=== PATIENT | female | born 1930 | race Caucasian/White ===

== ENCOUNTER 2019-05-15 12:03 | Inpatient (IN) | payer OTHER ==
[~2019-05-15] VITALS: Ht 167.6 cm; Wt 59.2 kg
[2019-05-15 12:19] VITALS: BP 87/49
[2019-05-15 12:21] LABS: HEMATOCRIT 36.2 % (37.0-47.0); HEMOGLOBIN 12.2 gm/dL (12.0-15.0); MCH 33.8 pg (26.0-34.0); MCHC 33.8 g/dL (28.0-37.0); MCV 100.1 fL (80.0-100.0); PLATELET COUNT 275 thou/uL (150-400); RBC 3.62 mil/uL (4.20-5.00); RDW 14.3 % (10.5-14.5); WBC 18.7 thou/uL (4.0-11.0)
[2019-05-15 12:32] LABS: CALCIUM 8.6 mg/dL (8.5-10.1); CREATININE 1.1 mg/dL (0.6-1.0); POTASSIUM 3.2 mmol/L (3.5-5.1)
[2019-05-15 12:36] LABS: ANISOCYTOSIS SLIGHT
[2019-05-15 12:37] LABS: ALBUMIN 3.3 g/dL (3.4-5.0); TOTAL BILIRUBIN 1.3 mg/dL (<0.1-1.0); TOTAL PROTEIN 6.4 g/dL (6.4-8.2)
[2019-05-15] MEDS ORDERED: ACETAMINOPHEN325 MG PO (13:28)
[2019-05-15] MEDS ORDERED: ADULT LOW DOSE81 MG PO (13:29)
[2019-05-15] MEDS ORDERED: DULCOLAX STOOL100 M1 PO (13:30)
[2019-05-15] MEDS ORDERED: FLOMAX0.4 MG PO (13:31)
[2019-05-15] MEDS ORDERED: DULCOLAX STOOL100 MG PO (13:31)
[2019-05-15] MEDS ORDERED: MIRALAX119 GM PO (13:34)
[2019-05-15] MEDS ORDERED: SUPER THERAVIT1 EACH PO (13:34)
[2019-05-15] MEDS ORDERED: TRIAMTERENE/HCT1 CA1 PO (13:35)
--- NOTE | 2019-05-15 20:47 | NUR ---
CHECKED WITH [facility] ON [facility] AND THEY CALLED PREVIOUS SKILLED NURSING [place], NO HISTORY OF CDIFF , MRSA
[2019-05-15 21:05] VITALS: BP 107/58
[2019-05-15 21:15] VITALS: BP 107/58
[2019-05-15 22:30] VITALS: BP 106/68
--- NOTE | 2019-05-16 00:53 | NUR ---
PATIENT ARRIVED VIA BED FROM ED WITH VISCOSITY WORKER. WALKED FROM ED BED TO ROOM BED WITH WALKER. BERRY TO D/D WITH SIAAC URINE. ALERT AND ORIENTED X4. PLEASANT AND COOPERATIVE. RIGHT HEEL WOUND, REDNESS TO BUTTOCK AND LEFT ARM REDNESS/WARMTH WITH SOME EDEMA. RESTING QUIETLY.
--- NOTE | 2019-05-16 04:54 | NUR ---
PATIENT ALERT AND ORIENTED X4. BERRY TO D/D WITH ISAAC URINE. NO BM AT TIME OF NOTE. IVPB INFUSING THROUGH RIGHT HAND SL. MEDICATED WITH TYLENOL FOR GENERALIZED PAIN DUE TO ARTHRITIS. PATIENT STATES THAT SHE IS NOT DIABETIC AND WILL NOT TAKE FINGER STICKS. PATIENT WILL HAVE A MRI OF HER RIGHT FOOT AND DOPPLER OF HER BILATERAL LOWER LEGS TODAY. SLEPT WELL DURING THE NIGHT. PATIENT COULD NOT REMEMBER THE NAME OF THE ASSISTED LIVING FACILITY SHE LIVES IN HOWEVER, [facility] AND SHE WOULD LIKE FOR SOMEONE TO BRING HER PURSE TO HER IN THE HOSPITAL. RESTING QUIETLY.
[2019-05-16 05:22] LABS: ABSOLUTE NEUTROPHILS 13.8 thou/uL (1.4-8.2); BASOPHILS 0.5 % (0.0-2.0); HEMATOCRIT 30.4 % (37.0-47.0); LYMPHOCYTES 8.7 % (24.0-44.0); MCH 33.9 pg (26.0-34.0); MCHC 33.5 g/dL (28.0-37.0); MCV 101.1 fL (80.0-100.0); MONOCYTES 5.2 % (1.0-8.0); POLYS 85.6 % (36.0-66.0); RBC 3.01 mil/uL (4.20-5.00); RDW 14.4 % (10.5-14.5); WBC 16.1 thou/uL (4.0-11.0)
[2019-05-16 05:23] LABS: HEMOGLOBIN 10.2 gm/dL (12.0-15.0); PLATELET COUNT 200 thou/uL (150-400)
[2019-05-16 06:09] LABS: ALBUMIN 2.6 g/dL (3.4-5.0); CALCIUM 7.7 mg/dL (8.5-10.1); CREATININE 0.9 mg/dL (0.6-1.0); MAGNESIUM 1.6 mg/dL (1.8-2.4); PHOSPHORUS 3.7 mg/dL (2.5-4.9); TOTAL BILIRUBIN 1.2 mg/dL (<0.1-1.0); TOTAL PROTEIN 5.4 g/dL (6.4-8.2)
[2019-05-16 06:18] LABS: POTASSIUM 2.7 mmol/L (3.5-5.1)
--- NOTE | 2019-05-16 07:55 | EKG ---
[facility] [place] [address] ELECTROCARDIOGRAM REPORT Name: JESSENIA VAUGHAN Room #: 405-P ADM IN M.R.#: [id number] Admission: 05/15/19 Attend Phys: Renata Renee MD Discharge: Date of : [birth year]/27/[birth year] Report #: [id number] THIS REPORT FOR: cc: Kedar Hay James D. DO Lundgren, Craig H. MD [facility] ~ THIS REPORT FOR: //name// [facility] ED Test Date: 2019-05-15 Test Time: 12:07:41 Pat Name: JESSENIA VAUGHAN Department: Room: 405 Gender: F Qlikview Developer: yudi : 1930 Requested By: Renata Renee Order Number: [id number] MD: Dexter Burr Measurements Intervals Wenden Rate: 102 P: 66 VA: 174 QRS: -11 QRSD: 96 T: 166 QT: 329 QTc: 429 Interpretive Statements Sinus tachycardia Multiple premature complexes, supraven Inferior infarct, old Nonspecific ST and T wave abnormality No previous ECG available for comparison Electronically Signed On 05-16-2019 7:54:50 PAYROLL AND BENEFITS ANALYST by Dexter Burr [email or web address] <ELECTRONICALLY SIGNED> By: Dexter Burr MD, [facility] 05/16/19 0754 [id number] Dexter Burr MD, [facility] /EPI
[2019-05-16 08:20] VITALS: BP 111/64
[2019-05-16 16:33] VITALS: BP 100/64
--- NOTE | 2019-05-16 17:26 | NUR ---
INITIAL ASSESSMENT: Received high risk nursing referral. SW reviewed chart and spoke with nursing and attending physician. Pt was admitted from [facility] due to right heel ulceration. Pt to have MRI today to r/o osteomyelitis. SW met with pt at bedside. Introduced role of SW. Pt is alert/orientated x 4. Pt reports she lives alone in an AL apt at [facility]. Pt states she is currently on service with [facility]. Pt has been to [facility] in the past. SW explained that pt may need post-acute placement or to resume services when discharged. Pt verbalized understanding. Pt's nephew and niece are her contacts and are involved in her care. SW is following to assist as needed with discharge planning.
--- NOTE | 2019-05-16 17:34 | NUR ---
ASSUMED PATIENT CARE AT 0700. PATIENT IS AOX4. PATIENT HAD HER MRI AND LEAD DONE AND WAS OFF THE FLOOR FOR SEVERAL HOURS. PATIENT WAS SEEN BY WOUND CARE AND A DEBRIDMENT WAS DONE TO THE WOUND ON THE LEFT HEEL. PATIENT HAS BEEN GETTING UP AND MOVING AROUND AND HAS SPENT TIME IN THE CHAIR TODAY. PATIENT HAD A BOWEL MOVEMENT TODAY AND WHILE CLEANING UP FROM THAT THE WOUND CARE TEAM WAS ABLE TO LOOK AT HER BOTTOM, CONTINUE BARRIER CREAM. FOLLEY IS IN PLACE AND PATENT. PATIENT HAS EDEMA IN THE LEFT ARM THAT IS SORE, WARM TO TOUCH, AND RED. DOCTOR IS AWARE AND WE PULLED THE INFILTRATED IV OUT. PATIENT IS UP WITH 1 AND DOES PRETTY WELL WITH HER GAIT. FALL PRECAUTIONS ARE IN PLACE AND CALL LIGHT WITHIN REACH.
--- NOTE | 2019-05-16 20:03 | NUR ---
I AGREE WITH NURSING ASSESSMENT AND NURSING NOTE DONE BY RAGINI/NICOLE.
[2019-05-16 20:05] VITALS: BP 98/62
[2019-05-17 02:15] LABS: HEMATOCRIT 30.2 % (37.0-47.0); HEMOGLOBIN 9.8 gm/dL (12.0-15.0); MCH 33.2 pg (26.0-34.0); MCHC 32.6 g/dL (28.0-37.0); MCV 101.6 fL (80.0-100.0); RBC 2.97 mil/uL (4.20-5.00); RDW 14.3 % (10.5-14.5)
[2019-05-17 02:16] LABS: CALCIUM 8.1 mg/dL (8.5-10.1); CREATININE 0.8 mg/dL (0.6-1.0)
[2019-05-17 02:18] LABS: POTASSIUM 4.4 mmol/L (3.5-5.1)
[2019-05-17 04:23] VITALS: BP 127/80
--- NOTE | 2019-05-17 05:40 | NUR ---
Assumed pt care at 1900. Pt is A/OX4 with forgetfulness noted but able to make needs known. Pt had a debridement to right heel yesterday, drsg on foot C/D/I/ Bordered foam applied to coccyx,area pink not open. VSS. Pt's left arm improving;less pink/warm but tender to touch;elevated on a pillow. Pt declined need for pain meds for it. Lee patent draining dark yellow urine,PO intake encouraged. IV abts infusing via Right wrist w/o problems. Fall precautions in place, calls approp for help.
[2019-05-17 09:35] LABS: % SATURATION 6 % (20-39); IRON 12 ug/dL (50-170); TIBC 199 ug/dL (250-450)
[2019-05-17 09:40] VITALS: BP 130/79
[2019-05-17 10:07] LABS: FOLIC ACID 13.1 ng/mL (8.6-58.9)
--- NOTE | 2019-05-17 13:52 | NUR ---
SW reviewed chart and spoke with nursing and attending physician. Ortho and IR consult ordered today to evaluate pt. Pt remains on IV abx. [facility] is following to assist as needed with discharge planning.
--- NOTE | 2019-05-17 17:34 | NUR ---
PT IS AOX2-3, [place] AND FORGETFUL. PT RECEIVED DRESSING CHANGE TO RIGHT HEEL BY WOUND CARE TEAM. DRESSING IS C/D/I. PT HAS FOAM DRESSING ON COCCYX. PT HAS IV RUE AND RFA, RECEIVES SCHEDULED ANTIBIOTIC THERAPY ORDERED. PT IS TOLERATING DIET, BERRY IS PATENT. FALL PRECAUTION IN PLACE, CALL LIGHT/PERSONAL ITEMS IN REACH. WILL CONTINUE TO MONITOR.
[2019-05-17 20:29] VITALS: BP 126/84
[2019-05-18] VITALS (9 sets, daily range): BP systolic 119–149; BP diastolic 56–81
--- NOTE | 2019-05-18 04:19 | NUR ---
Assumed pt care at 1900. Pt's A/OX4, VSS.Up with moderate assist to BSC,WBAT to RLE. Had a soft BM this shift, lombardi patent draining dark yellow urine. Wound care done to right heel and wound cx obtained as ordered;picture taken pt tolarated procedure well. Fall precautions in place,pt calls approp. Will continue to monitor pt. Pt has 2 PIV's on RAC/wrist patent and SL. Left arm red,swollen and warm to touch elevated on a pillow.
--- NOTE | 2019-05-18 11:31 | HC ---
[facility] [place] [address] CONSULTATION Name: JESSENIA VAUGHAN Room #: 150-5 ADM IN M.R.#: [id number] Admission: 05/15/19 Attend Phys: Renata Renee MD Discharge: Date of : [birth year]/27/[birth year] Report #: [id number] THIS REPORT FOR: cc: Kedar Hay James D. DO Althoff, Jeffrey R. MD ~ CC: Kedar Renee DATE OF SERVICE: 05/16/2019 WOUND CARE CONSULTATION CHIEF COMPLAINT: Right heel ulcer. HISTORY OF PRESENT ILLNESS: This is an 88-year-old female patient with some history of peripheral vascular disease, living in a facility. She was noted to have an odor as well as an ulceration to her right posterior heel, and I have been asked to see her with regard to wound care. The patient cannot provide a whole lot of information about herself in terms of its onset and duration. She does note a little bit of discomfort associated with it. PAST MEDICAL HISTORY: Positive for history of hypertension, urinary retention. She has an indwelling Lee catheter. SOCIAL HISTORY: The patient denies significant alcohol use and no history of tobacco use. FAMILY HISTORY: Positive for history of coronary artery disease in her family. MEDICATIONS: Include acetaminophen, aspirin, Dulcolax, Flomax, MiraLax, hydrochlorothiazide and triamterene. ALLERGIES: PROMETHAZINE. REVIEW OF SYSTEMS: CONSTITUTIONAL: The patient denies fever, chills or weight loss. NEUROLOGICAL: The patient denies focal weakness, numbness or tingling. EYES: The patient denies visual changes, redness, or drainage. ENT: The patient denies earache, nasal drainage, sore throat. CARDIOVASCULAR: The patient denies chest pain, palpitations or diaphoresis. PULMONARY: The patient denies cough or shortness of breath. GASTROINTESTINAL: The patient denies nausea, vomiting, diarrhea or abdominal pain. ORTHOPEDIC: The patient does complain of pain involving her right posterior heel. [facility] [address] [place] [address] CONSULTATION Name: JESSENIA VAUGHAN Room #: 150-5 ADM IN ..#: [id number] Admission: 05/15/19 Attend Phys: Renata Renee MD Discharge: Date of : 12/27/[birth year] Report #: [id number] Other systems in a 14-point review of systems are negative. PHYSICAL EXAMINATION: VITAL SIGNS: At this time include temperature 36.7, pulse 73, respiratory rate 16, blood pressure 100/64. GENERAL: This is a frail-appearing female patient who appears to be in mild distress. HEENT: Head normocephalic. Nose and throat clear. NECK: Supple. LUNGS: Clear. HEART: Regular rhythm. ABDOMEN: Bowel sounds present. EXTREMITIES: Lower extremities demonstrate distal pulses are a little bit difficult to palpate. These appear to be pink, warm and dry. There is a foul smelling circular ulceration on the right posterior heel that measures 2.5 x 1.5 x 0.1 cm with some moist black eschar. This was debrided at the bedside with a #10 bladed scalpel, which she tolerated well. Please see separate dictation for the procedure note. NEUROLOGIC: The patient is alert and oriented and appropriate. LABORATORY DATA: Sodium 136, potassium 2.7, chloride 100, CO2 of 28, BUN 21, creatinine 0.9, glucose 109, calcium 7.7, phosphorus 3.7, total protein 5.4, albumin 2.6. White blood cell count 16.1, hemoglobin 10.2. CLINICAL IMPRESSION: 1. Unstageable pressure ulceration of the right heel, status post debridement. 2. Peripheral vascular disease by clinical exam. 3. Sepsis with hypotension and lactic acidosis. 4. Hypertension. 5. Anemia. RECOMMENDATIONS: At this point in time, I have debrided the heel at the bedside with the patient's permission. The patient tolerated the procedure well. We will recommend a quarter strength Dakin's moist gauze dressing. We will look for an MRI as well as vascular studies and additional decision making will be forthcoming pending review of these studies. We will place her in a PRAFO boot while she is in bed. We will recommend ongoing aggressive nutritional support. I appreciate being asked to see the patient in consultation. <ELECTRONICALLY SIGNED> By: Amos Hugo MD 05/18/19 1131 [id number] Amos Hugo MD /nt
--- NOTE | 2019-05-18 11:31 | P ---
[facility] [place] [address] PROCEDURE REPORT Name: JESSENIA VAUGHAN Room #: 150-5 ADM IN M.R.#: [id number] Admission: 05/15/19 Attend Phys: Renata Renee MD Discharge: Date of : 12/27/[birth year] Report #: [id number] THIS REPORT FOR: cc: Kedar Hay,Amos Draper MD ~ CC: Kedar Renee DATE OF SERVICE: 05/16/2019 PREPROCEDURE DIAGNOSIS: Unstageable pressure ulcer to the right heel. POSTPROCEDURE DIAGNOSIS: Unstageable pressure ulcer to the right heel. PROCEDURE PERFORMED: Surgical excisional debridement of skin, subcutaneous and devitalized tissue to the right posterior heel. DESCRIPTION OF PROCEDURE: After verbal consent from the patient at the bedside, the right heel was prepped and draped in usual sterile fashion. Time-out was taken. Correct patient, correct site, correct procedure were determined. A #10 bladed scalpel was then utilized with tissue forceps to remove eschar, skin and subcutaneous tissue down to a healthier clean bleeding base. No bony exposure was noted. The patient tolerated the procedure well, with the pain a 2 on a scale of 1-10 during the procedure and 0 on a scale of 1-10 postprocedure. Estimated blood loss 0 mL. No hemostasis was required. <ELECTRONICALLY SIGNED> By: Amos Hugo MD 05/18/19 1131 [id number] Amos Hugo MD /margaret
--- NOTE | 2019-05-18 14:43 | NUR ---
SW reviewed chart and spoke with nursing and attending physician. Pt had angiogram earlier today and transferred to CCU following procedure. SW discussed with pt's family who state that they do not want pt to go to [facility], as pt had mentioned earlier. Family would be agreeable with [facility] SNF if needed. Will need therapy evals when pt is able to participate. SW updated CCU SW. Following to assist as needed with discharge planning.
--- NOTE | 2019-05-18 18:17 | NUR ---
ASSUMMED PT CARE AT APPROXIMATELY 1530. PT A&O X4. ASSESSMENT CHARTED. FALL PRECAUTIONS IN PLACE. PT DENIES HAVING CHEST PAIN. PT DENIES HAVING SOB. PT STATED HER L UPPER ARM HAD PAIN. PT RECEIVED ANALGESICS. L UPPER EXTREMITY INFILTRATED. ELEVATED L ARM AND WRAPPED IN WARM COMPRESS. PT L GROIN C/D/I. NO HEMATOMA. BERRY D/C. AWAITING PT TO HAVE POST-CATH REMOVAL VOID. EDUCATED PT AND PT'S FAMILY ABOUT POC. PT AND PT'S FAMILY STATED UNDERSTANDING AND DENIED HAVING FURTHER QUESTIONS. VITAL SIGNS STABLE. PT COMFORTABLE IN BED. PT DENIES HAVING FURTHER CONCERNS.
[2019-05-19 00:55] VITALS: BP 121/69
[2019-05-19 04:45] VITALS: BP 119/61; BP 136/77
--- NOTE | 2019-05-19 05:04 | NUR ---
PT ALERT AND ORIENTED. VSS. LEFT GROIN DRESSING C/D/I. ASSIST OF 1 TO THE BEDSIDE COMMODE. SR RHYTHM ON THE MONITOR. NO CHEST PAIN. NO NAUSEA OR VOMITING REPORTED. WILL CONTINUE WITH POC.
[2019-05-19 06:05] LABS: HEMATOCRIT 32.2 % (37.0-47.0); MCH 34.5 pg (26.0-34.0); MCHC 34.3 g/dL (28.0-37.0); MCV 100.9 fL (80.0-100.0); RBC 3.19 mil/uL (4.20-5.00); WBC 8.5 thou/uL (4.0-11.0)
[2019-05-19 06:26] LABS: CALCIUM 7.8 mg/dL (8.5-10.1); CREATININE 0.6 mg/dL (0.6-1.0); POTASSIUM 3.6 mmol/L (3.5-5.1)
[2019-05-19 08:00] VITALS: BP 136/83
[2019-05-19 11:00] VITALS: BP 127/82
--- NOTE | 2019-05-19 15:22 | NUR ---
Referral called and discussed with [facility] for likely snf stay at dc. 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 PT/OT evals in progress. Dc meeting/event planner to fax referral and therapy evals to [facility]. Dc timeframe is uncertain.
[2019-05-19 16:00] VITALS: BP 155/86
--- NOTE | 2019-05-19 18:26 | NUR ---
ASSUMED PATIENT 0700. ALERT X3, DENIES SOB, DENIES CHEST PAIN, PAIN MANAGED WITH PRN MEDCATION, RIGHT HEEL ULCER DRESSIMG CHANGED PER ORDER.WOUND CARE LOOKED AT WOUND NOT PLANS FOR SURGERY AT THIS TIME. LEFT ARM EDEMA, RED AND BLISTERING DUE TO IV ABX INFILTRATION. PHYSICIAN, MANAGEMENT, HOUSE SUP, WOUND CARE, IV TEAM AWARE. IV TEAM DID A ULTRA SOUND OF ARM. DR GREY ORDERED ASHKAN WRAP OR TUBI CLIENT RELATION SPECIALIST TOLERATED FOR EDEMA. ARM ELEVATED AND COLD COMPRESSES APPLIED WELL. ASSIST WITH MEAL SET UP. UP WITH AX1 TO COMMODE. BM TODAY. CALL LIGHT IN REACH. FALL PRECAUTIONS IN PLACE. CONTINUE TO MONITOR. NO PLANS DC IN AM.
[2019-05-19 19:55] VITALS: BP 139/82
[2019-05-20 04:50] VITALS: BP 152/72
--- NOTE | 2019-05-20 06:30 | NUR ---
ASSESSMENT: PT REMAIN ALERT AND ORIENT TIMES THREE. UP TO BSC WITH ONE ASSIST. RIGHT HEEL ELEVATED ON PILLOWS. TYLENOL GIVEN FOR PAIN. NO TELE. VSS, AFEBRILE. WILL CONTINUE TO MONITOR.
[2019-05-20 07:50] VITALS: BP 158/100
--- NOTE | 2019-05-20 11:56 | NUR ---
ASSUMED CARE AT 0700, SHIFT ASSESMENT DONE, MEDS GIVEN, VSS. REPORTED PAIN, PRN PAIN MED GIVEN. WOUND CARE DONE. ROOM AIR, NOT ON TELE. WILL CONTINUE TO ASSESS AND ASSIST WITH ADLs NEEDED.
--- NOTE | 2019-05-20 16:16 | NUR ---
[facility] SN[facility] updated and they have submitted for snf auth with dc anticipated on Thursday. Sensitivities are pending. No surgery anticiapted. Pt will likely need iv atb, wound care and therapy at the SNF.
--- NOTE | 2019-05-20 17:00 | NUR ---
FAXED REFERRAL TO [facility] SPOKE WITH KILEY IN ADM THEY RECEIVED REFERRAL AND THEY NEED PT'S SOC. SECURITY NUMBER IT IS NOT ON FACE SHEET. SW SPOKE WITH PT AND SHE IS TRYING TO GET HER SS CARD HERE. DP TO FOLLOW.
--- NOTE | 2019-05-20 20:14 | NUR ---
VAT CONSULTED FOR A PICC FOR THIS PT FOR IV ABX FOR HER RT FOOT WOUND. SHE ALSO HAS AN EXTENSIVE INFILTRATION IN HER LT ARM THAT IS WARM, TENDER AND PAINFUL. ASSESSED HER LT AC VESSELS AND THEY ARE ONLY PARTIALLY COMPRESSIBLE. RECOMMENDED A DX ULTRASOUND TO RULE OUT A THROMBUS IN THE AM. A 4FRSLPICC PLACED IN HER RUABAILIC. PLEASE SEE INSERTION FOR DETAILS.
[2019-05-20 20:45] VITALS: BP 132/77
--- NOTE | 2019-05-20 20:48 | NUR ---
Pt transferred from CCU at 1730, report received from Staff nurse Rene. A+Ox4. On room air. On regular diet- tolerated dinner well; no nausea, no vomiting and no abdominal pain. Due medications given as prescribed, able to swallow tablet without difficulty. With SL at R FA. With R heel ulcer- dressing in place, as per previous nurse, dressing has been done today. Able to use the bedside commode with AO1. With redness and swelling noted on L arm, pt said she had a previous IV that infiltrated on that arm, kept elevated and ice pack applied. Falls bundle in place. Pt with orders this evening from Dr Granados, for PICC line insertion- consent obtained from the patient, had to call he relative Bobby re: PICC line insertion- they agreed and said pt can sign document, consent obtained- IV nurse informed; PICC line inserted. 1830 antibiotic not given as pt has ongoing PICC line insertion, palliative care coordinator nurse informed to give antibiotic once IV nurse done. A/w wound team and ortho plans for pt as well as placement and discharge plans. To continue monitoring patient.
--- NOTE | 2019-05-20 20:52 | NUR ---
TIP OF PICC AT THE [facility], [place] FOR USE PER PROTOCOL
--- NOTE | 2019-05-21 05:21 | NUR ---
Pt. rested quietly during the night when checked on during frequent rounds. She did c/o pain to her right heel and po tylenol given (see emar) with some relief noted. Left arm continues to be reddish in color and warm upon touch. Ice bag applied to the arm throughout the shift. up to the bedside comode with assistance of one. Bed alarm is on.
[2019-05-21 09:30] VITALS: BP 136/54
[2019-05-21 18:50] VITALS: BP 127/70
--- NOTE | 2019-05-21 19:24 | NUR ---
88 YO FEMALE TRANSFERED FROM 4W. A&OX4. IV INTACT IN R FA, MAY PICC INTACT INFUSING NS @ 20ML/HR. STAND BY ASSIST X1. PT'S NIECE ZOYA NOTIFIED OF TRANSFER. ORIENTED PT TO ROOM/CALL LIGHT, CHAIR ALARM ON.
--- NOTE | 2019-05-21 19:31 | NUR ---
Received awake on bed. Due medications given as prescribed, able to swallow meds w/o difficulty. On room air. Vital signs stable. Continent of bowel and bladder, able to use a bedside commode with AO1, gait belt and walker. With SL on R FA, with PICC line at R upper arm- pt seen by IV nurse and dressing change. Assisted in ADLs. Pt still have redness and swelling noted on her left arm, compression applied on the arm as ordered; ultrasound done as ordered. Pt visited by relatives today. Pt with sacral wound and R heel wound- unable to change dressing today, previous dressing in place- night club manager nurse informed that dressings were not changed. Rt heel kept elevated. left hand elevated and ice packs applied. Pt transferred to [facility] as per catalyst supervisor's advise, Report given to Staff nurse Edith Otero, transported via wheelchair with her personal belongings with her, informed staff Edith to inform pt's relative re: transfer.
[2019-05-21 19:45] VITALS: BP 126/86
--- NOTE | 2019-05-22 04:19 | NUR ---
ASSUMED CARE OF PATIENT AT SHIFT CHANGE. ASSESSMENT CHARTED. MEDICATIONS GIVEN PER MAY. PATIENT IS A&OX4, VSS, VOICES PAIN. PRN TYLENOL GIVEN. PATIENT GOT UP FROM CHAIR TO BSC AND BED THIS SHIFT, X 1 ASSIST WITH FAIR TOLERANCE. PATIENT IN BED AT AROUND 2100 W R FOOT ELEVATED. L HAND STILL SWOLLEN BUT NO LONGER HOT TO TOUCH. ARM ELEVATED ON PILLOW WHILE SLEEPING THIS SHIFT. PATIENT DENIED PAIN FOR REST OF NIGHT. PATIENT TO HAVE FOOT WOUND CHANGED DAILY; REQUESTED TO HAVE DRESSING CHANGED DURING DAY. SACRAL BANDAGE C/D/I. PATIENT HAD A SMALL BM THIS SHIFT. FALL PRECAUTIONS IN PLACE. CALLS OUT APPROPRIATELY. DENIES NEEDS AT THIS TIME. PER CM AND CARE TEAM, PATIENT TO D/C THIS COMING WEEK TO RETIREMENT; POSSIBLY [facility]. WILL CONTINUR TO MONITOR AND FOLLOW PLAN OF CARE
--- NOTE | 2019-05-22 04:58 | NUR ---
THIS NURSE AGREES WITH ASSESSMENT AND NOTES FROM HOT CAR OPERATOR ON THIS PATIENT.
[2019-05-22 07:34] VITALS: BP 154/89
--- NOTE | 2019-05-22 14:51 | NUR ---
PT A&OOX4. IV INTACT IN R FA, PICC LINE INTACT IN AMY. TRANSFERS WITH ASSIST X1 TO CHAIR AND BSC. L ARM IS RED AND SWOLLEN FROM HAND TO UPPER ARM. TOLERATED R HEAL CHANGE, TYLENOL GIVEN FOR PAIN. SIITING IN CHAIR WITH ARM ELEVATED AND ICE PACK TO ARM.WILL CONT POC.
[2019-05-22 16:25] VITALS: BP 123/72
[2019-05-22 19:31] VITALS: BP 130/73
--- NOTE | 2019-05-23 03:15 | NUR ---
PATIENT ALERT AND ORIENTED X4. UP TO THE BSC WITH ONE ASSIST AND PRESSURE OFF OF HER RIGHT HEEL. DRESSING DRY AND INTACT. LEFT ARM REMAINS RED, HOWEVER, SWELLING IS DOWN CONSIDERABLY AND ARM IS UP ON A PILLOW. NO C/O PAIN AT THIS TIME. PLEASANT AND COOPERATIVE. WILL MONITOR.
[2019-05-23 08:59] VITALS: BP 156/83
--- NOTE | 2019-05-23 14:29 | NUR ---
DISCHARGE PLANNING. ANTICIPATED DISCHARGE TO [facility] ONCE INSURANCE AUTH OBTAINED. TOMMY BOWMANOP ADMISSIONS, WAS ABLE TO OBTAIN PATIENTS SOCIAL SECURITY NUMBER FROM [facility]. INSURANCE AUTH PENDING AT THIS TIME. FOLLOWING.
--- NOTE | 2019-05-23 16:16 | NUR ---
SW reviewed chart and spoke with nursing and attending physician. Pt was transferred to [facility] from and is progressing towards goals for discharge. Awaiting therapy notes from today to sent to [facility] for review. Will need insurance authorization for skilled placement. Pt will need IV abx. SW met with pt at bedside to discuss discharge plan. Pt was unaware of referral to [facility] and plan to discharge to the SNF. SW explained that the level of care being recommended is not available at her currently AL facility. Pt requested SW contact her [id number], Kelle Galdamez, to further discuss. Pt states that she thought she would be going to a facility at [facility] and [place]. SW spoke with Kelle Galdamez, via phone to discuss post-acute placement. Kelle Galdamez is agreeable with pt going to [facility]. Pt has been to [facility] and family does not want her to return there. BESSY explained need for insurance authorization. BESSY updated [place] liaison and incident coordinator. BESSY is following to assist as needed with discharge planning.
--- NOTE | 2019-05-23 18:38 | HC ---
[facility] [place] [address] CONSULTATION Name: JESSENIA VAUGHAN Room #: 404-P ADM IN M.R.#: [id number] Admission: 05/15/19 Attend Phys: Renata Renee MD Discharge: Date of : 12/27/30 Report #: [id number] THIS REPORT FOR: cc: Kedar Hay,Willie Goldberg MD ~ CC: Kedar Renee DATE OF SERVICE: 05/19/2019 INFECTIOUS DISEASE CONSULTATION REASON FOR CONSULTATION: I was asked to evaluate concerning right heel wound infection and early osteomyelitis. HISTORY OF PRESENT ILLNESS: The 88-year-old with peripheral vascular disease, nonhealing wound to her right heel. No specific trauma identified. The patient had fallen previously and had been residing in a longterm most recently. Returns for further evaluation. She was seen by Vascular Medicine and underwent a right lower extremity arterial stent. She tolerated the procedure well. She has a moderate amount of pain in the heel. She is now being addressed by wound care service. She did have a CT scan, which showed evidence of soft tissue wound and cellulitis along with early osteomyelitis of the calcaneus. No definite abscess. She has been seen by Orthopedic Surgery who plans on surgical debridement tomorrow. No fever, chills, or sweats. No history of diabetes. REVIEW OF SYSTEMS: A 14-point review of systems was negative other than what has been described above. PAST MEDICAL HISTORY: Hypertension, urinary retention, and has an indwelling Lee catheter. FAMILY HISTORY: Coronary artery disease. SOCIAL HISTORY: Lives alone, nonsmoker, no significant alcohol intake. 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 ALLERGIES: PROMETHAZINE. MEDICATIONS: Tylenol, aspirin, Flomax, MiraLax, hydrochlorothiazide, triamterene, now on vancomycin and Zosyn. PHYSICAL EXAMINATION: VITAL SIGNS: She was afebrile and hemodynamically stable. GENERAL: Alert and cooperative, was frail, but in no distress. [facility] [address] [place] [address] CONSULTATION Name: JESSENIA VAUGHAN Room #: [facility] IN M.R.#: [id number] Admission: 05/15/19 Attend Phys: Renata Renee MD Discharge: Date of : 12/27/30 Report #: [id number] SKIN: With cellulitis and wound to the posterior heel region. Left upper extremity swelling and erythema over the forearm and distal portion of her upper arm. She had an IV in this region and previously was infiltrated. There is no palpable adenopathy. EYES: Without scleral icterus. MOUTH: Without mucositis. NECK: Supple. LUNGS: Clear to auscultation. HEART: Regular, without murmur, gallop, or rub. ABDOMEN: Soft and nontender with no hepatosplenomegaly or mass. EXTREMITIES: Distal pulses were diminished in both feet. NEUROLOGIC: Cranial nerves were intact. Strength in upper and lower extremities as well as sensation upper and lower extremities was symmetric and within normal limits. Spine was nontender. No CVA tenderness. Mood was within normal limits. No anxiety or depression. LABORATORY STUDIES: Reviewed. Microbiology reviewed. CT scan of the right lower extremity was reviewed. IR intervention was reviewed. IMPRESSION: 1. Ischemic wound to the right heel with associated early calcaneus osteomyelitis. I am awaiting culture results, so far showing corynebacterium. 2. Peripheral vascular disease. 3. Left upper extremity soft tissue inflammatory response from infiltrated IV. 4. Hypertension. 5. Anemia. RECOMMENDATIONS: We will continue IV antibiotic therapy following final culture results. Await orthopedic surgery evaluation with deep tissue cultures, plan for tomorrow. Continue with anticoagulation per Interventional Radiology recommendations. We will plan on IV therapy and make arrangements for post-acute care following surgery tomorrow. <ELECTRONICALLY SIGNED> By: Willie Granados MD 05/23/19 1838 [id number] Willie Granados MD /nt
--- NOTE | 2019-05-23 19:42 | NUR ---
ASSUME PT CARE AT 0700. VSS ON RA. PT A&OOX4. ABLE TO VOICE HER NEEDS. IV INTACT IN R FA, PICC LINE INTACT IN AMY. REASSESSMENT PER CHART. MORNING MEDS GIVEN. TRANSFERS WITH ASSIST X1 TO CHAIR AND BSC. PT HAD 2X SOFT BM THIS AM. CONTINUE TO BE ON IV ABT. L ARM IS RED AND SWOLLEN FROM HAND TO UPPER ARM THAT LOOKS BETER TODAY. LESS RED AND SWOLLEN TODAY. CONTINUE TO ELEVATE ON PILLOW AND APPLIED ICE PACK. WOUND CARE CHANGED. C/O BACK PAIN 09/06 THIS AM. PRN TYLENOL GIVEN. PT WAS UP IN DINNING ROOM FOR LUNCH. HAS FAIR APPETITE. PT HAD NEIGHBORS VISIT AND THAT MADE HER DAY. NEW ORDER FOR [employer]OT WEIGHTBERING SHOE ON LEFT FOOT. CHUN CAME TO SEE PT AND PT HAS SHOE ON WHEN GETS UP NOW. DR. DUMAS CAME TO SEE PT AND CHANGE AMPICILLIN IV TO VANCOMYCIN. OFFERED SUPPORTIVE CARE. CARE PROVIDED AND EDUCATION INSTRUCTION GIVEN FOR FALL, PAIN AND ENCOURAGED PT TO VOICE HER NEEDS. CHECKED FREQUENTLY FOR NEEDS AND SAFETY. GAVE REPORT TO NIGHT NURSE. FALL PRECAUTION IN PLACE. PT SAID SHE HAD A GOOD DAY TODAY.
[2019-05-23 19:47] VITALS: BP 117/74
--- NOTE | 2019-05-24 05:06 | NUR ---
Assumed pt care at 1900. Pt is A/OX4,VSS. Denies pain on assessment. Up with AX1, RW/GB. WBAT to RLE,wears an ortho shoe while ambulating to bathroom. Drsg in place on right foot C/D/I. Edema noted on Right foot; elevated on a pillow while in bed. Fall precautions in place,calls approp. Resting without any distress noted, will continue to monitor pt.
[2019-05-24 07:10] VITALS: BP 139/75
--- NOTE | 2019-05-24 13:05 | NUR ---
SW reviewed chart and spoke with nursing and attending physician. Pt on IV vancomycin. Awaiting input from IR regarding any additional procedures. [facility] has submitted for insurance authorization. sales planner to fax clinical/therapy updates to [facility] for review. Pt can transport via w/c van. BESSY is following to assist as needed with discharge planning.
[2019-05-24 15:27] VITALS: BP 139/82
--- NOTE | 2019-05-24 19:53 | NUR ---
ASSUMED CARE OF PATIENT AT 0715, PATIENT ALERT AND ORIENTED X 4. UP WITH SBA WITH ORTHO SHOE TO RIGHT FOOT WHENUP TO AMBULATE. PATIENT C/O PAIN TO COCCYX AND RIGHT FOOT THHIS SHIFT, TYLENOL 650MG GIVEN X 2. PATIENT C/O LEFT ARM SWELLING, DR MARY NOTIFIED, RECEIVED NEW ORDER FOR ELEVATE LEFT ARM, WARM MOIST PACK TID TO LEFT ARM, AND SLING ORDERED FOR LEFT ARM. WOUND CARE DONE TO RIGHT FOOT. RIGHT UPPER ARM PICC LINE, VANCO TROUGH DRAWN PER RIGHT UPPER ARM PICC LINE, VANCO TROUGH 5. WILL CONTINUE TO MONITOR.
[2019-05-24 20:23] VITALS: BP 98/65
--- NOTE | 2019-05-25 03:51 | NUR ---
Assumed pt care at 1900. Pt is A/OX4,VSS. Denied pain on assessment. Pt is up with AX1,RW/GB. WBAT to RLE,wears ortho shoe while ambulating. Drsg C/D/I on right foot,edema noted on dorsal foot;elevated while lying down. Continent of B&B. PICC line in place on RUE and patent. Fall precautions in place,calls approp. Resting quietly at this time,will continue to monitor pt.
[2019-05-25 09:06] VITALS: BP 134/97
[2019-05-25 10:43] VITALS: BP 134/97
[2019-05-25] MEDS ORDERED: VANCO 1 GR1 GM/250 M IVPB (14:51)
[2019-05-25] MEDS ORDERED: CLOPIDOGREL75 MG PO (14:51)
[2019-05-25 15:48] VITALS: BP 120/68
--- NOTE | 2019-05-25 17:16 | NUR ---
Pt dcing to SNF at [facility] today at 1700 per their w/c van. All parties aware of the dc time. Chart copy and orders ready to be sent with the pt. Nursing to call report.
--- NOTE | 2019-05-25 18:22 | NUR ---
PT IS AOX4, VSS, NO C/O PAIN. PT IS CONTINENT, UP WITH ASSIST X1 TO BATHROOM. RUE PICC LINE REMAINS FOR IV ANTIBOTIC THERAPY. DRESSING ON RIGHT FOOT WAS CDI, PT HAD 4 SMALL BM FORMED. TOLERATED DIET WELL. PT TRANSFERRED TO [facility] PER WHEELCHAIR VAN.
== END 2019-05-25 18:28 | DRG 854 ==
LOC: ER 12:03 → 2N 14:24 → EROBS 14:24 → 4N 14:24 → TBA 05-18 10:34 → 2N 05-18 15:27 → 4W 05-20 15:58 → 4N 05-21 18:30
PROVIDERS: Emergency Medicine; Hospitalist; Nuclear Medicine Nuclear Cardiology; ADMIT Internal Medicine
DX: A41.9 Sepsis, unspecified organism (principal); E87.2 Acidosis; M86.8X7 Other osteomyelitis, ankle and foot; E44.0 Moderate protein-calorie malnutrition; N17.9 Acute kidney failure, unspecified; I10 Essential (primary) hypertension; I73.9 Peripheral vascular disease, unspecified; I95.9 Hypotension, unspecified; E87.6 Hypokalemia; L89.610 Pressure ulcer of right heel, unstageable; F32.9 Major depressive disorder, single episode, unspecified; N32.81 Overactive bladder; D53.9 Nutritional anemia, unspecified; E83.42 Hypomagnesemia; R53.81 Other malaise; Z79.899 Other long term (current) drug therapy; Z79.82 Long term (current) use of aspirin; Z88.8 Allergy status to other drugs, medicaments and biological substances; Z82.49 Family history of ischemic heart disease and other diseases of the circulatory system; Z68.21 Body mass index [BMI] 21.0-21.9, adult
CPT/HCPCS: 10047; 10081; 10091; 10194; 10790; 10797; 27000

== ENCOUNTER 2019-10-19 13:18 | Emergency (ER) | payer MEDICARE ==
[~2019-10-19] VITALS: Ht 167.6 cm; Wt 60.3 kg
[~2019-10-19 13:18] MED LIST: ACETAMINOPHEN325 MG PO; ADULT LOW DOSE81 MG PO; CLOPIDOGREL75 MG PO; DULCOLAX STOOL100 M1 PO; DULCOLAX STOOL100 MG PO; FLOMAX0.4 MG PO; MIRALAX119 GM PO; SUPER THERAVIT1 EACH PO; TRIAMTERENE/HCT1 CA1 PO; VANCO 1 GR1 GM/250 M IVPB
--- NOTE | 2019-10-19 15:39 | EKG ---
[facility] [place] [address] ELECTROCARDIOGRAM REPORT Name: ALEXUSJESSENIA Room #: REG [facility].#: [id number] Admission: 10/19/19 Attend Phys: Discharge: Date of : 12/27/30 Report #: [id number] THIS REPORT FOR: cc: Kedar Hay - Family physician unknown Fazal Campos MD ~ THIS REPORT FOR: //name// [facility] ED Test Date: 2019-10-19 Test Time: 14:48:23 Pat Name: JESSENIA VAUGHAN Department: Room: Gender: F Erp Consultant: LIAM : 1930 Requested By: Kat Brown Order Number: [id number] MD: Fazal Campos Measurements Intervals Camilla Rate: 75 P: 74 MD: 167 QRS: -5 QRSD: 87 T: -8 QT: 380 QTc: 425 Interpretive Statements Sinus rhythm Atrial premature complexes Low voltage, precordial leads Probable anteroseptal infarct, old Compared to ECG 05/15/2019 12:07:41 Myocardial infarct finding still present Electronically Signed On 10-19-2019 15:39:44 CDT by Fazal Campos [email or web address] <ELECTRONICALLY SIGNED> By: Fazal Campos MD 10/19/19 1539 1448 1448 Fazal Campos MD /EPI
[2019-10-19] MEDS ORDERED: ULTRAM50 MG PO (16:01)
[2019-10-19 17:00] VITALS: BP 175/106
== END 2019-10-19 17:00 | disposition home or self-care (01) ==
LOC: ER 13:18
DX: S46.912A Strain of unspecified muscle, fascia and tendon at shoulder and upper arm level, left arm, initial encounter (principal); I10 Essential (primary) hypertension; Z79.82 Long term (current) use of aspirin; Z79.01 Long term (current) use of anticoagulants; Z79.899 Other long term (current) drug therapy; Z88.8 Allergy status to other drugs, medicaments and biological substances; X58.XXXA Exposure to other specified factors, initial encounter; Y93.89 Activity, other specified; Y92.89 Other specified places as the place of occurrence of the external cause; Y99.8 Other external cause status

== ENCOUNTER 2019-11-15 18:40 | Inpatient (IN) | payer MEDICARE ==
[~2019-11-15] VITALS: Ht 152.4 cm; Wt 59.1 kg
[~2019-11-15 18:40] MED LIST changes: +ULTRAM50 MG PO
[2019-11-15 18:41] VITALS: BP 125/82
[2019-11-15 19:05] LABS: ABSOLUTE NEUTROPHILS 3.5 thou/uL (1.4-8.2); BASOPHILS 0.7 % (0.0-2.0); EOSINOPHILS 0.6 % (0.0-3.0); HEMATOCRIT 36.5 % (37.0-47.0); HEMOGLOBIN 12.8 gm/dL (12.0-15.0); LYMPHOCYTES 16.2 % (24.0-44.0); MCH 31.5 pg (26.0-34.0); MCHC 35.1 g/dL (28.0-37.0); MCV 89.6 fL (80.0-100.0); MONOCYTES 9.7 % (1.0-8.0); PLATELET COUNT 216 thou/uL (150-400); POLYS 72.8 % (36.0-66.0); RBC 4.07 mil/uL (4.20-5.00); RDW 18.1 % (10.5-14.5); WBC 4.9 thou/uL (4.0-11.0)
[2019-11-15 19:11] LABS: ANION GAP 10 mmol/L (7-16); BUN 32 mg/dL (7-18); CALCIUM 8.5 mg/dL (8.5-10.1); CHLORIDE 104 mmol/L (98-107); CO2 27 mmol/L (21-32); CREATININE 0.9 mg/dL (0.6-1.0); GLUCOSE 121 mg/dL (74-106); POTASSIUM 3.7 mmol/L (3.5-5.1); SODIUM 141 mmol/L (136-145)
[2019-11-15 19:17] LABS: URINE BILIRUBIN NEGATIVE (Negative); URINE BLOOD 2+ (Negative); URINE CLARITY CLEAR; URINE COLOR YELLOW; URINE GLUCOSE-RANDOM* NEGATIVE (Negative); URINE KETONES NEGATIVE (Negative); URINE LEUKOCYTES-REFLEX TRACE (Negative); URINE PROTEIN (DIPSTICK) NEGATIVE (Negative); URINE SPECIFIC GRAVITY 1.025 (1.005-1.035); URINE UROBILINOGEN 0.2 E.U./dl (0.2-1.0)
[2019-11-15 19:18] LABS: URINE NITRITE-REFLEX POSITIVE (Negative)
[2019-11-15 19:21] LABS: ALBUMIN 3.6 g/dL (3.4-5.0); SGOT 25 U/L (15-37); SGPT 21 U/L (30-65); TOTAL BILIRUBIN 0.5 mg/dL (0.2-1.0); TOTAL PROTEIN 6.5 g/dL (6.4-8.2); TROPONIN-I <0.06 ng/mL (<0.06)
[2019-11-15 19:40] LABS: SQUAMOUS 0-3 Few /LPF (0-3)
[2019-11-15] MEDS ORDERED: MIRALAX119 GM PO (19:40)
[2019-11-15 19:41] LABS: HYALINE CASTS 0-3 Few /LPF (None Seen)
[2019-11-15] MEDS ORDERED: GNP SENNA PLUS1 EACH PO (19:41)
[2019-11-15 19:42] LABS: BACTERIA-REFLEX >30 Many /HPF (None Seen)
[2019-11-15] MEDS ORDERED: VITAMIN C500 M2 PO (19:42)
[2019-11-15 19:43] LABS: URINE RBC None Seen /HPF (0-2)
[2019-11-15] MEDS ORDERED: CALCITONIN-SAL3.7 ML PO (19:43)
[2019-11-15] MEDS ORDERED: LASIX 40 MG TAB40 MG PO (19:43)
[2019-11-15] MEDS ORDERED: KLOR-CON 1010 MEQ PO (19:44)
[2019-11-15 19:45] LABS: CRYSTALS None Seen /LPF (None Seen)
[2019-11-15 19:47] LABS: WBC CLUMPS Few (None Seen)
[2019-11-15 19:50] LABS: CASTS None Seen /LPF (None Seen)
[2019-11-15 22:42] VITALS: BP 151/90
[2019-11-15 22:52] VITALS: BP 148/88
[2019-11-15 23:23] VITALS: BP 146/93
--- NOTE | 2019-11-16 03:52 | NUR ---
PT WAS ADMITTED FROM THE ER IN A STABLE CONDITION.PT C/O PAIN ON HER BACK,MANAGED WITH MED.SKIN TEAR NOTED ON HER RFA.SCD IN PLACE ON HER BLE.ADMISSION HX,EDUCATION AND ASSESSMENT COMPLETED.IVF INFUSING ORDERED. PT SLEEPING ON HER BED AT THIS TIME.FALL PRECAUTIONS IN PLACE.CALL LIGHT WITHIN REACH.
[2019-11-16 04:22] VITALS: BP 132/78
[2019-11-16 07:52] VITALS: BP 146/98
--- NOTE | 2019-11-16 13:46 | NUR ---
ASSESSMENT: CM REVIEWED CHART AND SPOKE WITH PATIENT. PT WAS ADMITTED WITH AMS AND UTI. PATIENTS DPOA/NIECE ZOYA ALSO SPOKE WITH CM. PT IS FROM [facility] AND HAS BEEN TO [facility] IN THE PAST. CM DISCUSSED WITH ATTENDING THIS AM PT/OT IS TO SEE PATIENT AND SHE MAY NEED POST ACUTE CARE. CM NOTIFIED ATTENDING TO ORDER A COVID TEST WHICH IS STILL PENDING. CM DISCUSSED WITH PATIENT AND HER NIECE SNF OPTIONS AND THEY PREFER TO STAY IN THE [facility] AND WANTED A REFERRAL TO [facility]. CM FAXED REFERRAL AND NOTIFIED LIASON. PT HAS AN [employer] MEDICARE PLAN AND WILL REQUIRE AUTH. OT EVAL IS IN AND CM FAXED TO [facility] BUT STILL WAITING ON PT EVAL. CM WILL CONTINUE TO FOLLOW TO ASSIST NEEDED. DISCHARGE PLAN: LIKELY [facility] IF INSURANCE APPROVES.
--- NOTE | 2019-11-16 14:54 | NUR ---
Assumed care of pt at 0700. Pt plesantly confused. Skin tear noted on rt upper extremity. Picture taken and wound care consulted. Up SBA with walker and gait-belt. Covid test sent to lab for when pt is able to discharge to facility. IVF infusing. Fall precautions in place. Will continue to monitor.
[2019-11-16 15:10] VITALS: BP 133/89
[2019-11-16 19:10] VITALS: BP 139/87
--- NOTE | 2019-11-17 02:44 | NUR ---
ASSUMED PT CARE AT 1900.PT WAS ALERT AND PLEASANTLY CONFUSED.PT WAS RESTLESS AT START OF SHIF.PT WAS OBSERVED MAKING SEVERAL ATTEMPTS TO GET OUT OF BED.PT PULLED HER IV OUT AT THAT TIME.IV REPALCED TO HER RFA.PT MOVED TO RM 445 FOR HER SAFETY.PT SLEEPING ON HER BED AT THIS TIME.FALL PRECAUTIONS IN PLACE,CALL LIGHT WITHIN REACH.
--- NOTE | 2019-11-17 08:12 | EKG ---
[facility] [place] [address] ELECTROCARDIOGRAM REPORT Name: JESSENIA VAUGHAN Room #: 445-P ADM IN M.R.#: [id number] Admission: 11/15/19 Attend Phys: Jesús Baltazar MD Discharge: Date of : 12/27/[birth year] Report #: [id number] THIS REPORT FOR: cc: Kedar Hay James D. DO Couchonnal, Luis F. MD ~ THIS REPORT FOR: //name// [facility] ED Test Date: 2019-11-15 Test Time: 19:06:12 Pat Name: JESSENIA VAUGHAN Department: Room: [facility] Gender: F Manager Interventional: DAGO : 1930 Requested By: Conner Phillips Order Number: [id number] MD: Fazal Campos Measurements Intervals Ovalo Rate: 104 P: WY: QRS: 60 QRSD: 81 T: -51 QT: 331 QTc: 436 Interpretive Statements Atrial fibrillation Probable anteroseptal infarct, old Borderline repolarization abnormality Compared to ECG 10/19/2019 14:48:23 Electronically Signed On 11-17-2019 8:11:47 CDT by Fazal Campos [email or web address] <ELECTRONICALLY SIGNED> By: Fazal Campos MD 11/17/1911 05 05 Fazal Campos MD /EPI
[2019-11-17] MEDS ORDERED: KEFLEX500 M1 PO (13:00)
--- NOTE | 2019-11-17 13:39 | NUR ---
Dc meeting/event planner faxed clincial updated and snf dc orders to [facility]. They are working on ins auth for admission today. Covid test results are still pending and hopefully back this afternoon. Possible dc today pending ins approval and covid testing. Case discussed with the care team.
--- NOTE | 2019-11-17 13:40 | NUR ---
FAXED CLINICAL UPDATE TO [facility] OP SPOKE WITH KILEY IN ADM SHE RECEIVED UPDATE AND COVID RESULT WILL SUBMIT THEM FOR AUTH.
--- NOTE | 2019-11-17 13:41 | NUR ---
FAXED CLINICAL UPDATE TO [facility] SPOKE WITH KILEY IN ADM SHE RECEIVED UPDATE STILL WTG ON COVID RESULT WILL FAX TO FACILITY ONCE AVAILABLE.
[2019-11-17 16:00] VITALS: BP 165/95
--- NOTE | 2019-11-17 16:41 | NUR ---
PT ASSESSED AT START OF SHIFT. NO C/O PAIN. CALM AND COOPERATIVE W/ CARES. IS FORGETFUL W/ MILD CONFUSION. EATING AND DRINKING WELL. INCONTINENT OF URINE. AWAITING DC TO [facility] WHEN AUTHORIZATION COMES THROUGH. COVID WAS NEGATIVE.
[2019-11-17 21:35] VITALS: BP 198/105
--- NOTE | 2019-11-18 03:04 | NUR ---
PT ALERT/CONFUSED AND IMPULSIVE.PT WAS OBSERVED TRYING TO GET OUT OF BED WITHOUT SASHA,PT EDUCATED TO CALL FOR ASSISTANCE.PT UP TO THE BSC WITHA SSIST X1 AND GAIT BELT.PT VERY UNSTEADY ON HER FEET.PT SLEEPING ON HER BED AT THIS TIME.FALL PRECAUTIONS IN PLACE.CALL LIGHT WITHIN REACH.
[2019-11-18 06:15] VITALS: BP 179/102
[2019-11-18 07:52] VITALS: BP 161/99
[2019-11-18 07:53] VITALS: BP 171/108
[2019-11-18 07:55] VITALS: BP 182/115
[2019-11-18 11:33] VITALS: BP 146/90
[2019-11-18 11:38] VITALS: BP 146/90
--- NOTE | 2019-11-18 12:03 | NUR ---
BESSY reviewed chart and spoke with nursing and attending physician. Pt is medically stable for discharge to [facility] pending insurance authorization. COVID test was negative and sent to [facility] yesterday. BESSY faxed clinical updates and OT note from today to [facility] for review. BESSY spoke with pt's niece, Kelle, via phone to provide update. Kelle is agreeable with discharge plan. Chart copy requested. BESSY is following to assist as needed with discharge planning.
--- NOTE | 2019-11-18 13:53 | NUR ---
PT IS ALERT TO SELF, UNSTABLE VITAL SIGNS (BP) CONFUSED, IMPULSIVE, REG DIET, AMBULATES WITH ONE PERSON ASSIST. PT IS SELF FEED, IV RIGHT FOREARM. PT HAS A 1/2IN SKIN TEAR ON RIGHT FOREARM. PT WILL D/C TO [facility] TODAY.
--- NOTE | 2019-11-18 14:54 | NUR ---
WOUND CONSULT; ASSESSMENT OF THE RIGHT FOREARM SKIN TEAR. THE WOUND IS STABLE AT THIS TIME. THERE IS NO DRAINAGE AND NO S/S OF INFECTION. RECOMMENDATIONS; 1- XEROFORM,BORDER FOAM, SECURE WITH A TUBIGRIP, M/W/F PRN DISCUSSED WITH MARGE
== END 2019-11-18 16:36 | DRG 689 ==
LOC: ER 18:40 → EROBS 22:25 → 4S 22:25
PROVIDERS: Emergency Medicine; ADMIT Hospitalist; ATTEND Hospitalist
DX: N39.0 Urinary tract infection, site not specified (principal); R65.11 Systemic inflammatory response syndrome (SIRS) of non-infectious origin with acute organ dysfunction; G92 Toxic encephalopathy; N17.9 Acute kidney failure, unspecified; M62.84 Sarcopenia; Z20.828 Contact with and (suspected) exposure to other viral communicable diseases; I73.9 Peripheral vascular disease, unspecified; I10 Essential (primary) hypertension; K59.00 Constipation, unspecified; E86.0 Dehydration; M81.0 Age-related osteoporosis without current pathological fracture; R33.9 Retention of urine, unspecified; B96.1 Klebsiella pneumoniae [K. pneumoniae] as the cause of diseases classified elsewhere; Z98.42 Cataract extraction status, left eye; Z98.41 Cataract extraction status, right eye; Z88.8 Allergy status to other drugs, medicaments and biological substances; Z79.82 Long term (current) use of aspirin; Z79.899 Other long term (current) drug therapy
CPT/HCPCS: 10195